=== PATIENT | male | born 1970 | race Caucasian/White ===

== ENCOUNTER 2021-10-25 11:29 | Emergency (ER) | payer OTHER ==
[~2021-10-25] VITALS: Ht 172.7 cm; Wt 79.8 kg
[2021-10-25 12:03] LABS: ABSOLUTE NEUTROPHILS 4.3 thou/uL (1.4-8.2); BASOPHILS 0.1 % (0.0-2.0); HEMATOCRIT 46.8 % (42.0-52.0); HEMOGLOBIN 15.8 gm/dL (14.0-18.0); LYMPHOCYTES 13.4 % (24.0-44.0); MCHC 33.8 g/dL (28.0-37.0); MCV 91.6 fL (80.0-100.0); MONOCYTES 4.1 % (1.0-8.0); PLATELET COUNT 117 thou/uL (150-400); POLYS 82.4 % (36.0-66.0); RBC 5.11 mil/uL (4.50-6.00); RDW 13.5 % (10.5-14.5); WBC 5.2 thou/uL (4.0-11.0)
[2021-10-25 12:15] LABS: CREATININE 1.6 mg/dL (0.7-1.3); POTASSIUM 3.6 mmol/L (3.5-5.1)
[2021-10-25 12:18] LABS: APTT 37.2 Seconds (24.5-32.8); D-DIMER 1.05 ug/mLFEU (0.19-0.50); INR 0.95; PROTIME 10.4 Seconds (10.5-12.1)
[2021-10-25 12:25] LABS: ALBUMIN 3.2 g/dL (3.4-5.0); TOTAL BILIRUBIN 0.7 mg/dL (0.2-1.0); TOTAL PROTEIN 7.1 g/dL (6.4-8.2)
[2021-10-25 13:32] LABS: URINE BILIRUBIN NEGATIVE (Negative); URINE BLOOD NEGATIVE (Negative); URINE CLARITY CLEAR; URINE COLOR YELLOW; URINE GLUCOSE-RANDOM* NEGATIVE (Negative); URINE KETONES 1+ (Negative); URINE LEUKOCYTES-REFLEX NEGATIVE (Negative); URINE NITRITE-REFLEX NEGATIVE (Negative); URINE PROTEIN (DIPSTICK) 1+ (Negative); URINE UROBILINOGEN 0.2 E.U./dl (0.2-1.0)
[2021-10-25 13:44] LABS: CASTS None Seen /LPF (None Seen); SQUAMOUS None Seen /LPF (0-3); URINE RBC None Seen /HPF (NONE SEEN); URINE WBC-REFLEX 0-5 Rare /HPF (0-5)
[2021-10-25 13:45] LABS: BACTERIA-REFLEX 1-9 Few /HPF (None Seen); CRYSTALS None Seen /LPF (None Seen)
[2021-10-25] MEDS ORDERED: PROMETH-CODEIN 65 ML PO (14:06)
[2021-10-25] MEDS ORDERED: AZITHROMYCIN 2250 MG PO (14:06)
[2021-10-25 14:20] VITALS: BP 122/72
--- NOTE | 2021-10-26 07:26 | EKG ---
[address] [address] ELECTROCARDIOGRAM REPORT Name: JOSE MANUEL AGUILAR Room #: DEP RAJEEV [place]#: [id number] Admission: 10/25/21 Attend Phys: Discharge: 10/25/21 Date of : 72 Report #: [id number] [facility] ED Test Date: 2021-10-25 Test Time: 11:40:43 Pat Name: JOSE MANUEL AGUILAR Department: Room: Gender: Technical Sales Representatives: nelda walker : 1970 Requested By: Geovanny Karimi Order Number: [id number] MD: Suresh Good Measurements Intervals [place] Rate: 84 P: 76 IN: 134 QRS: 73 QRSD: 88 T: 25 QT: 353 QTc: 418 Interpretive Statements Sinus rhythm No previous ECG available for comparison Electronically Signed On 10-26-2021 7:26:18 TEAM PRIMARY CARE PHYSICIAN by Suresh Good [email or web address] <ELECTRONICALLY SIGNED> By: Suresh Good MD, [facility] 10/26/21 0726 1140 1140 Suresh Good MD, FACC /EPI
== END 2021-10-25 14:20 | disposition home or self-care (01) ==
LOC: ER 11:29
PROVIDERS: Emergency Medicine
DX: U07.1 COVID-19 (principal); J12.82 Pneumonia due to coronavirus disease 2019; R51.9 Headache, unspecified